=== PATIENT | female | born 1955 | race Caucasian/White ===

== ENCOUNTER 2024-04-07 09:40 | Emergency (ER) | payer MEDICARE ==
[2024-04-07 10:17] LABS: BASOPHILS ABSOLUTE AUTO 0.04 K/uL (0.00-0.20); BASOPHILS PERCENT AUTO 0.4 % (0.0-2.0); EOSINOPHILS ABSOLUTE AUTO 0.13 K/uL (0.00-0.50); EOSINOPHILS PERCENT AUTO 1.3 % (0.0-5.0); HEMATOCRIT 39.4 % (34.0-46.0); HEMOGLOBIN 11.4 g/dL (11.7-15.5); IMMATURE GRAN ABSOLUTE AUTO 0.13 10^3/uL (0.00-0.50); IMMATURE GRAN PERCENT AUTO 1.3 % (0.0-5.0); LYMPHOCYTES ABSOLUTE AUTO 1.53 K/uL (0.50-3.50); LYMPHOCYTES PERCENT AUTO 15.2 % (10.0-50.0); MEAN CORPUSCULAR HEMOGLOBIN 29.8 pg (28.2-33.3); MEAN CORPUSCULAR HGB CONC 28.9 g/dL (31.7-36.0); MEAN CORPUSCULAR VOLUME 103.1 fL (84.0-98.0); MONOCYTES ABSOLUTE AUTO 0.89 K/uL (0.00-1.00); MONOCYTES PERCENT AUTO 8.8 % (2.0-14.0); NEUTROPHILS ABSOLUTE AUTO 7.37 K/uL (1.40-7.00); PLATELET COUNT,PLT 322 K/uL (150-350); RED BLOOD CELL COUNT 3.82 M/uL (3.77-5.09); RED CELL DISTRIBUTION WIDTH 16.8 % (11.2-14.1); WHITE BLOOD CELL COUNT,WBC 10.1 K/uL (4.0-10.2)
[2024-04-07 10:27] LABS: HCO3 VENOUS,POC 38 mmol/L (23-28); O2 SATURATION VENOUS,POC 95 %; PH VENOUS,POC 7.25 (7.31-7.41); PO2 VENOUS,POC 94 mmHg
[2024-04-07] MEDS: cefTRIAXone 1 GM Vial IVPUSH STA (10:27)
[2024-04-07 10:30] LABS: PCO2 VENOUS,POC 87 mmHg (41-51)
[2024-04-07] MEDS ORDERED: VANCOmycin 2 GM/400 ML 2 GM in Premix Bag 1 BAG IV ONE (10:30)
[2024-04-07 10:41] LABS: LACTIC ACID 0.9 mmol/L (0.4-2.0)
[2024-04-07 10:42] LABS: PROTHROMBIN TIME 10.2 SEC (9.0-11.1)
[2024-04-07] MEDS: Naloxone 0.4 MG/ML SDV IVPUSH ONE (10:44)
[2024-04-07] MEDS: Sodium Chloride 0.9% 10 ML Syringe FLUSH PRN (10:44)
[2024-04-07] MEDS: Sodium Chloride 0.9% 1,000 ML IV ONE (10:48)
[2024-04-07 10:56] LABS: POTASSIUM,K 5.4 mmol/L (3.5-5.1)
[2024-04-07 10:57] LABS: ANION GAP 6.2 meq/L (7-15); CARBON DIOXIDE,CO2 41.2 mmol/L (21.0-32.0)
[2024-04-07 10:58] LABS: ALBUMIN 2.7 g/dL (3.4-5.0); BILIRUBIN TOTAL 1.3 mg/dL (0.2-1.0); CALCIUM 8.9 mg/dL (8.5-10.1); CREATININE 0.98 mg/dL (0.51-1.17); EST CRCL DRUG DOSING (CG) 46.71 mL/min; PROTEIN TOTAL,TP 7.1 g/dL (6.4-8.2)
[2024-04-07 12:01] LABS: APPEARANCE,URINE SLIGHTLY CLOUDY; BILIRUBIN,URINE SMALL (NEGATIVE); COLOR,URINE DARK YELLOW; GLUCOSE,URINE NEGATIVE (NEGATIVE); KETONES,URINE NEGATIVE (NEGATIVE); LEUKOCYTE ESTERASE,URINE NEGATIVE (NEGATIVE); NITRITE,URINE NEGATIVE (NEGATIVE); OCCULT BLOOD,URINE MODERATE (NEGATIVE); PROTEIN,URINE 100 mg/dL (NEGATIVE); UROBILINOGEN,URINE 0.2 E.U./dL (0.2-1.0)
[2024-04-07 12:08] LABS: AMORPHOUS SEDIMENT,URINE MODERATE /HPF (0/HPF); GRANULAR CASTS,URINE MODERATE; HYALINE CASTS,URINE FEW; RBC,URINE >100 /HPF; WBC,URINE 40-50 /HPF
[2024-04-07 12:09] LABS: BACTERIA,URINE FEW /HPF (NONE TO FEW)
[2024-04-07 12:11] LABS: EPITHELIAL CELLS,URINE MANY /LPF
[2024-04-07] MEDS: Iopamidol 755 Mg/ML 100 ML Bottle IVPUSH STA (12:29)
[2024-04-07] MEDS: cefTRIAXone 1 GM in Sodium Chloride 0.9% 100 ML IV ONE (12:32)
[2024-04-07] MEDS: Furosemide 40 MG/4 ML VIAL IVPUSH ONE (14:05)
== END 2024-04-07 13:50 ==
LOC: LL.ED 09:40
DX: J96.02 Acute respiratory failure with hypercapnia (principal); N39.0 Urinary tract infection, site not specified; I13.0 Hypertensive heart and chronic kidney disease with heart failure and stage 1 through stage 4 chronic kidney disease, or unspecified chronic kidney disease; I50.9 Heart failure, unspecified; N18.9 Chronic kidney disease, unspecified; E11.22 Type 2 diabetes mellitus with diabetic chronic kidney disease; E66.9 Obesity, unspecified; Z91.048 Other nonmedicinal substance allergy status; Z88.8 Allergy status to other drugs, medicaments and biological substances
CPT/HCPCS: 36415; 51702; 70450; 71045; 71275; 80053; 81001; 82803; 82947; 83605; 83735; 83880; 84443; 84484; 85025; 85379; 85610; 86140; 87040; 87086; 87088; 93005; 96361; 96365; 96375; 99285-25; J0696; J2310; J3490; J7030; Q9967